=== PATIENT | male | born 1965 | race Two or more races ===

== ENCOUNTER 2021-04-23 16:02 | Inpatient (IN) | payer BC ==
[~2021-04-23] VITALS: Ht 177.8 cm; Wt 107.5 kg
[2021-04-23] MEDS ORDERED: HEPARIN SODIUM (PORCINE) 5000 UNITS/ML 1ML VIAL ONE (16:11)
[2021-04-23] MEDS ORDERED: METOPROLOL TARTRATE 1MG/1ML-5ML VIAL IV ONE ×2 (16:12→16:15)
[2021-04-23] MEDS ORDERED: HEPARIN SODIUM (PORCINE) 5000 UNITS/ML 1ML VIAL IV ONE (16:15)
[2021-04-23 16:41] LABS: Basophils # (auto) 0.1 10 ^3/uL (0-0.2); Basophils % (auto) 0.9 % (0.0-2.0); Eosinophils # (auto) 0.2 10 ^3/uL (0-0.8); Eosinophils % (auto) 2.1 % (0.0-7.0); Hematocrit 47.1 % (41.0-53.0); Hemoglobin 16.3 g/dL (13.5-17.5); Lymphocytes # (auto) 4.4 10 ^3/uL (0.4-5.4); Lymphocytes % (auto) 41.4 % (10.0-50.0); Mean Corpuscular Hemoglobin 31.8 pg (28.0-32.0); Mean Corpuscular Hgb Conc. 34.6 g/dL (32.0-36.0); Mean Corpuscular Volume 91.9 fL (80.0-100.0); Monocytes % (auto) 9.1 % (0.0-12.0); Neutrophils # (auto) 4.9 10 ^3/uL (1.6-8.6); Neutrophils % (auto) 46.5 % (37.0-80.0); Nucleated Red Blood Cells % 0.1 %; Red Blood Cells 5.12 10^6/uL (4.5-5.90); Red Cell Distribution Width 12.5 % (11.8-14.3); White Blood Cell 10.5 10^3/uL (4.4-10.8)
[2021-04-23 16:56] LABS: INR 1.01 (0.9-1.15); Partial Thromboplastin Time 23.9 sec (23.0-31.2)
[2021-04-23 17:00] LABS: Albumin 3.6 g/dL (3.4-5.0); BUN/Creatinine Ratio 15.9; Calcium 9.4 mg/dL (8.5-10.1); Potassium 3.8 mmol/L (3.5-5.1)
[2021-04-23 17:05] LABS: Bilirubin, Total 0.4 mg/dL (0.2-1.0); Total Protein 7.9 g/dL (6.4-8.2)
[2021-04-23 18:04] LABS: Alcohol, Urine < 3.0 mg/dL (0-10); Amphetamine Screen, Urine NEGATIVE (NEGATIVE); Barbiturate Scree,Urine NEGATIVE (NEGATIVE); Benzodiazephine Screen, Urine NEGATIVE (NEGATIVE); Cannabinoid Screen, Urine NEGATIVE (NEGATIVE); Cocaine Screen, Urine NEGATIVE (NEGATIVE); Opiate Scree,Urine NEGATIVE (NEGATIVE); Phencyclidine Screen, Urine NEGATIVE (NEGATIVE)
[2021-04-23] MEDS ORDERED: NITROGLYCERIN 0.4 MG SL TAB SL PRN (18:15)
[2021-04-23] MEDS ORDERED: MORPHINE SULF INJ 2 MG/ML SYRINGE 1ML IV PRN ×2 (18:15)
[2021-04-23] MEDS ORDERED: DEXTROSE (50%) 50ML SYRG IV PRN (18:15)
[2021-04-23] MEDS ORDERED: CLOPIDOGREL BISULFATE 75 MG TAB PO ONE (18:15)
[2021-04-23] MEDS ORDERED: PROMETHAZINE HCL 25 MG/ML 1ML IV PRN (18:15)
[2021-04-23] MEDS ORDERED: ACETAMINOPHEN 500 MG TAB PO PRN (18:15)
[2021-04-23] MEDS ORDERED: ASPirin 81 mg TAB PO ONE (18:15)
[2021-04-23] MEDS ORDERED: traMADol HCL 50 MG TAB PO PRN (18:15)
[2021-04-23] MEDS ORDERED: LACTULOSE 20Gm/30ML SOLN PO PRN (18:15)
[2021-04-23] MEDS ORDERED: METOPROLOL TARTRATE 25 MG TAB PO ONE (18:15)
[2021-04-23] MEDS ORDERED: TEMAZEPAM 15 MG CAP PO PRN (18:15)
[2021-04-23] MEDS: SODIUM CHLORIDE 0.9% 1,000 ML IV SCH (18:34)
[2021-04-23] MEDS: ACCU-CHEK COMFORT CURVE STRIP VI SCH (20:25)
[2021-04-23] MEDS: InsuLIN REG 1unit/0.01ml Soln (100units/ml) SC SCH (20:31)
[2021-04-23 21:22] VITALS: BP 145/76
[2021-04-23 21:54] VITALS: BP 121/70
[2021-04-23] MEDS ORDERED: ENOXAPARIN SOD 100 MG/1 ML SYRINGE SC SCH (22:00)
[2021-04-23] MEDS: ATORVASTATIN 20 MG TAB PO SCH (22:18)
[2021-04-23 22:45] VITALS: BP 145/76
[2021-04-23 23:00] VITALS: BP 105/62
[2021-04-24] VITALS (18 sets, daily range): BP systolic 111–148; BP diastolic 55–86
[2021-04-24] MEDS: ACCU-CHEK COMFORT CURVE STRIP VI SCH ×6 (00:22→20:30)
[2021-04-24] MEDS: InsuLIN REG 1unit/0.01ml Soln (100units/ml) SC SCH ×6 (00:24→20:30)
[2021-04-24 00:27] LABS: Calcium 9.1 mg/dL (8.5-10.1); Magnesium 2.1 mg/dL (1.6-2.6); Potassium 3.8 mmol/L (3.5-5.1)
[2021-04-24 00:28] LABS: BUN/Creatinine Ratio 17.7
[2021-04-24] MEDS ORDERED: AMIODARONE HCL 200 MG TAB PO ONE (00:30)
[2021-04-24 04:02] LABS: Basophils # (auto) 0.1 10 ^3/uL (0-0.2); Basophils % (auto) 0.9 % (0.0-2.0); Eosinophils # (auto) 0.2 10 ^3/uL (0-0.8); Eosinophils % (auto) 2.5 % (0.0-7.0); Hematocrit 44.3 % (41.0-53.0); Hemoglobin 15.3 g/dL (13.5-17.5); Lymphocytes # (auto) 3.3 10 ^3/uL (0.4-5.4); Lymphocytes % (auto) 40.8 % (10.0-50.0); Mean Corpuscular Hemoglobin 31.7 pg (28.0-32.0); Mean Corpuscular Hgb Conc. 34.6 g/dL (32.0-36.0); Mean Corpuscular Volume 91.8 fL (80.0-100.0); Monocytes # (auto) 0.7 10 ^3/uL (0-1.3); Monocytes % (auto) 8.2 % (0.0-12.0); Neutrophils # (auto) 3.9 10 ^3/uL (1.6-8.6); Neutrophils % (auto) 47.6 % (37.0-80.0); Nucleated Red Blood Cells % 0.1 %; Red Blood Cells 4.83 10^6/uL (4.5-5.90); Red Cell Distribution Width 12.6 % (11.8-14.3); White Blood Cell 8.1 10^3/uL (4.4-10.8)
[2021-04-24 04:20] LABS: Albumin 3.3 g/dL (3.4-5.0); Anion Gap 6 (5-15); Calcium 8.7 mg/dL (8.5-10.1); Carbon Dioxide 24 mmol/L (21-32); Chloride 106 mmol/L (98-107); Glucose 180 mg/dL (74-106); Potassium 3.4 mmol/L (3.5-5.1); Sodium 136 mmol/L (136-145)
[2021-04-24 04:29] LABS: Alanine Aminotransferase 92 U/L (16-61); Alkaline Phosphatase 55 U/L (45-117); Aspartate Aminotransferase 81 U/L (15-37); BUN/Creatinine Ratio 19.1; Bilirubin, Total 0.4 mg/dL (0.2-1.0); Blood Urea Nitrogen 17 mg/dL (7-18); Cholesterol 225 mg/dL (< 200); GFR African American 115 mL/min; GFR Non-African American 95 mL/min; HDL Cholesterol 30 mg/dL (40-59); Total Protein 7.4 g/dL (6.4-8.2); Triglycerides 545 mg/dL (< 150)
[2021-04-24] MEDS: METOPROLOL TARTRATE 25 MG TAB PO SCH ×2 (05:45→17:18)
[2021-04-24] MEDS ORDERED: AMIODARONE HCL 200 MG TAB PO SCH (06:00)
[2021-04-24] MEDS ORDERED: MIDAZOLAM HCL 1MG/1ML-2 ML VIAL ONE (07:40)
[2021-04-24] MEDS ORDERED: fentaNYL CITRATE 100 MCG/2 ML VL ONE (07:40)
[2021-04-24] MEDS ORDERED: SODIUM CHL 0.9% 50 ML ONE (07:40)
[2021-04-24] MEDS ORDERED: ANGIOMAX 250 MG VIAL IV ONE (07:40)
[2021-04-24] MEDS ORDERED: LIDOCAINE 2%HCL (LOCAL ANESTH.) INJ 20ML MDV ONE (07:41)
[2021-04-24] MEDS ORDERED: IOHEXOL 350 MG/ML 100ML IJ ONE (07:41)
[2021-04-24] MEDS ORDERED: EPTIFIBATIDE INJ (2MG/ML) 10ML VIAL IV ONE (08:02)
[2021-04-24] MEDS ORDERED: ASPirin 81 mg TAB ONE (08:34)
[2021-04-24] MEDS ORDERED: TICAGRELOR 90 MG TAB ONE (08:34)
[2021-04-24] MEDS: ASPirin 81 mg TAB PO SCH (08:37)
[2021-04-24] MEDS: SODIUM CHLORIDE 0.9% 1,000 ML IV SCH ×2 (09:04→21:18)
[2021-04-24] MEDS: NITROGLYCERIN 0.2MG/HR TOPICAL PATCH TD SCH (10:00)
[2021-04-24] MEDS ORDERED: CLOPIDOGREL BISULFATE 75 MG TAB PO SCH (10:00)
[2021-04-24] MEDS ORDERED: PRAV20TA3 PO (10:28)
[2021-04-24] MEDS ORDERED: METF-370 PO (10:28)
[2021-04-24] MEDS ORDERED: LISI40TA11 PO (10:28)
[2021-04-24] MEDS ORDERED: HYDR25TA5 PO (10:28)
[2021-04-24] MEDS ORDERED: POTASSIUM CHL 20 Meq TABLET PO ONE (10:30)
[2021-04-24] MEDS: PANTOPRAZOLE 40 MG TAB PO SCH (10:53)
[2021-04-24] MEDS: ENALAPRIL MALEATE 2.5 MG TAB PO SCH (10:53)
[2021-04-24] MEDS: TICAGRELOR 90 MG TAB PO SCH (20:22)
[2021-04-24] MEDS: ATORVASTATIN 20 MG TAB PO SCH (20:22)
[2021-04-25] MEDS: ACCU-CHEK COMFORT CURVE STRIP VI SCH ×5 (00:12→16:00)
[2021-04-25] MEDS: InsuLIN REG 1unit/0.01ml Soln (100units/ml) SC SCH ×5 (00:12→16:00)
[2021-04-25] MEDS: METOPROLOL TARTRATE 25 MG TAB PO SCH (05:28)
[2021-04-25 05:45] VITALS: BP_SYST 139; BP_SYST 159; BP_DIAS 77; BP_DIAS 92
[2021-04-25 05:56] VITALS: BP 146/92
[2021-04-25 07:02] LABS: Calcium 8.3 mg/dL (8.5-10.1); Potassium 3.8 mmol/L (3.5-5.1)
[2021-04-25 07:04] LABS: BUN/Creatinine Ratio 19.5
[2021-04-25 09:00] VITALS: BP 117/85
[2021-04-25] MEDS: ASPirin 81 mg TAB PO SCH (09:54)
[2021-04-25] MEDS: NITROGLYCERIN 0.2MG/HR TOPICAL PATCH TD SCH ×2 (09:55→10:00)
[2021-04-25] MEDS: TICAGRELOR 90 MG TAB PO SCH (09:55)
[2021-04-25] MEDS: SODIUM CHLORIDE 0.9% 1,000 ML IV SCH (09:56)
[2021-04-25] MEDS: ENALAPRIL MALEATE 2.5 MG TAB PO SCH (09:56)
[2021-04-25] MEDS: PANTOPRAZOLE 40 MG TAB PO SCH (09:56)
[2021-04-25 13:00] VITALS: BP 145/83
== END 2021-04-25 16:40 | disposition home or self-care (01) | DRG 247 ==
LOC: ER 16:02 → TELE 18:01 → ICU WEST 21:20 → TELE-EAST 04-24 14:52
PROVIDERS: ADMIT Internal Medicine; ATTEND Internal Medicine
PROC: 027035Z Dilation of Coronary Artery, One Artery with Two Drug-eluting Intraluminal Devices, Percutaneous Approach (ICD-10-PCS; principal; 2021-04-24)
PROC: 4A023N7 Measurement of Cardiac Sampling and Pressure, Left Heart, Percutaneous Approach (ICD-10-PCS; 2021-04-24)
PROC: B2111ZZ Fluoroscopy of Multiple Coronary Arteries using Low Osmolar Contrast (ICD-10-PCS; 2021-04-24)
PROC: B2151ZZ Fluoroscopy of Left Heart using Low Osmolar Contrast (ICD-10-PCS; 2021-04-24)
PROC: B240ZZ3 Ultrasonography of Single Coronary Artery, Intravascular (ICD-10-PCS; 2021-04-24)
DX: I21.4 Non-ST elevation (NSTEMI) myocardial infarction (principal); I47.1 Supraventricular tachycardia; I48.92 Unspecified atrial flutter; Z20.822 Contact with and (suspected) exposure to COVID-19; E11.40 Type 2 diabetes mellitus with diabetic neuropathy, unspecified; E66.01 Morbid (severe) obesity due to excess calories; E66.9 Obesity, unspecified; E11.65 Type 2 diabetes mellitus with hyperglycemia; E11.51 Type 2 diabetes mellitus with diabetic peripheral angiopathy without gangrene; M19.90 Unspecified osteoarthritis, unspecified site; R74.01 Elevation of levels of liver transaminase levels; E78.5 Hyperlipidemia, unspecified; E87.6 Hypokalemia; I10 Essential (primary) hypertension; I25.2 Old myocardial infarction; Z82.49 Family history of ischemic heart disease and other diseases of the circulatory system; Z83.3 Family history of diabetes mellitus; Z79.899 Other long term (current) drug therapy; Z68.34 Body mass index [BMI] 34.0-34.9, adult
CPT/HCPCS: 36415; 71045; 80048; 80053; 80061; 80307; 82962; 83036; 83735; 84443; 84484; 85025; 85379; 85610; 85730; 86850; 86900; 86901; 87081; 87426; 93005; 93306; 96361; 96374; 96375; 99152; 99291; C1874; G0378; J1815; J2250